=== PATIENT | male | born 1950 | race Caucasian/White ===

== ENCOUNTER 2016-12-27 13:52 | Emergency (ER) | payer OTHER ==
[~2016-12-27] VITALS: Ht 180.3 cm; Wt 82.0 kg
[2016-12-27 13:55] VITALS: BP 98/65; PULSE 104; RESP 20; TEMP 97.9; O2SAT 96
--- NOTE | 2016-12-27 13:59 | PD ---
Physical Exam Time Seen by Provider: 13:58 Narrative 66 yowm presents with R knee pain "couple weeks." VSS Seen at triage desk awaiting bed placement. Data Data Last Documented VS Vital Signs Date Time Temp Pulse Resp B/P Pulse Ox O2 Delivery O2 Flow Rate FiO2 12/27/16 13:55 97.9 104 20 98/65 96 Room Air [facility] Medical Record Reviewed: Yes Supervised Visit with JB: Yes Scripts No Active Prescriptions or Reported Meds Duane Blum Dec 27, 2016 13:59
[2016-12-27] MEDS ORDERED: TAMS0.4C4 PO (14:19)
[2016-12-27] MEDS ORDERED: BUPR75TA PO (14:19)
[2016-12-27] MEDS ORDERED: OMEP20TA PO (14:19)
--- NOTE | 2016-12-27 14:40 | PD ---
HPI Chief Complaint: Injury Time Seen by Provider: 14:40 Travel History International Travel<30 days: No Contact w/Intl Traveler<30days: No Traveled to known affect area: No History of Present Illness HPI 66-year-old male presents to the emergency room with complaint of right knee pain for the last few months. Denies injury. He has seen his primary care provider and had an x-ray done and was told that he has arthritis in his knee. He just can't take the pain anymore. His primary care provider told him to take Tylenol and it just is not working. Pain is worse with walking. He is not using anything for support. He denies paresthesias, loss of sensation, decreased range of motion, decreased strength to the affected extremity. Denies fever, chills, nausea, vomiting. Has not tried any other treatments to alleviate symptoms. Allergies to Unasyn. No other modifying factors or associated signs and symptoms. PFSH Past Medical History Anemia: Yes Arthritis: Yes (LOW BACK AND HANDS) Depression: Yes Cardiovascular Problems: Yes High Cholesterol: Yes Diabetes: No Diminished Hearing: Yes (IONE) GERD: Yes Headaches: Yes Hepatitis: Yes (HEPATITIS B) Hypertension: Yes Musculoskeletal: Yes (LEFT HAND , FINGERS, WRIST SWOLLEN FELL 2 DAYS AGO) Neurologic: Yes Psychiatric: Yes Integumentary: Yes (RASH ) Immunizations Current: Yes Migraines: Yes Pneumonia: Yes PNEUMOCCOCAL Vaccine (Year): 4 Past Surgical History Abdominal Surgery: Yes Pacemaker: No Tonsillectomy: Yes Other Surgery: Yes (REPAIR OF UMBILICAL AND VENTRAL HERNIA) Social History Alcohol Use: Yes (DAILY ETOH ABUSE) Tobacco Use: No Substance Use: Yes (ETOH, CRACK, BENZO, THC) Allergies-Medications (Allergen,Severity, Reaction): Coded Allergies: Unasyn (Verified Allergy, Unknown, SKIN RASH, 12/27/16) PT NOT SURE IF HE IS ALLERGIC TO THIS MED Reported Meds & Prescriptions Reported Meds & Active Scripts Active Folding Walker/5" Wheels (Device) 1 Mis Mis 1 Ea .ROUTE DIRECTED Naproxen 500 Mg Tab 500 Mg PO BID 7 Days Deltasone (Prednisone) 20 Mg Tab 40 Mg PO DAILY 5 Days Reported Tamsulosin (Tamsulosin HCl) 0.4 Mg Cap 0.4 Mg PO HS Omeprazole 20 Mg Tab 20 Mg PO BID Bupropion HCl 75 Mg Tab 75 Mg PO BID Review of Systems Except as stated in HPI: all other systems reviewed are Neg Physical Exam Narrative GENERAL: Well-nourished, well-developed male patient, in no acute distress; afebrile, nontoxic-appearing SKIN: Warm and dry. HEAD: Atraumatic. Normocephalic. EYES: Pupils equal and round. No scleral icterus. No injection or drainage. ENT: Mucosa pink and moist. Airway patent. NECK: Trachea midline. CARDIOVASCULAR: Regular rate. RESPIRATORY: No accessory muscle use. GASTROINTESTINAL: Rounded.. MUSCULOSKELETAL: Right knee nonedematous, nonerythematous, and without ecchymosis; with full range of motion and flexion to 90; joint stable with negative drawer test; point tenderness to the anterior aspect; no obvious deformities. Right lower extremity is supple and non-tense with 2+ pedal pulses and sensory intact without erythema or edema. No obvious deformities. No edema. NEUROLOGICAL: Awake and alert. Oriented 3. No obvious cranial nerve deficits. Motor grossly within normal limits. Normal speech. PSYCHIATRIC: Appropriate mood and affect; insight and judgment normal. Data Data Last Documented VS Vital Signs Date Time Temp Pulse Resp B/P Pulse Ox O2 Delivery O2 Flow Rate FiO2 12/27/16 13:55 97.9 104 20 98/65 96 Room Air Orders Crutches (12/27/16 14:40) MDM Medical Decision Making Medical Screen Exam Complete: Yes Emergency Medical Condition: Yes Medical Record Reviewed: Yes Differential Diagnosis Arthritis, bursitis, knee pain Narrative Course 66-year-old male with right knee pain that has been told he has arthritis by his primary care provider. Denies injury. He has had an x-ray in the last couple months verifying the arthritis, per the patient. He does not have anything for support. The knee is without erythema, edema and with full range of motion to 90. The joint stable with negative drawer test. I do not suspect fracture or dislocation and felt that imaging is necessary at this time. I provided patient with crutches for support. Prescribed a walker for home. Prescribed Deltasone and naproxen for home. Instructed patient to follow up with orthopedic. Patient verbalizes understanding and agreement with treatment plan. Patient is medically cleared and stable for discharge. Discussed reasons to return to the emergency department. Instructed patient to follow up with primary care provider. Patient agrees with treatment plan. The patients vital signs are stable and the patient is stable for outpatient follow- up and treatment. Patient discharged home, stable and in no acute distress. Diagnosis Primary Impression: Right knee pain Qualified Code: M25.561 - Right knee pain, unspecified chronicity Referrals: Orthopedist Primary Care Physician Patient Instructions: Arthritis (ED), Crutch Instructions (ED), General Instructions, Knee Pain (ED) Additional Instructions: Tylenol or ibuprofen as needed and as directed to reduce pain and inflammation Rest, ice, compress, and elevate extremity to decrease pain and inflammation Knee Brace for support Crutches for support Avoid aggravating activity; increase activity as tolerated Follow-up with primary care provider Return to the emergency department immediately with worsening symptoms Med/Other Pt SpecificInfo: Prescription(s) given Scripts Folding Walker/5" Wheels 1 Mis Mis #1 Ea .route As Directed Prov:Kenisha Lopez 12/27/16 Naproxen 500 Mg [id number] Mg PO BID 7 Days Ref 0 Prov:Kenisha Lopez 12/27/16 Prednisone (Deltasone)20 Mg Tab40 Mg PO DAILY 5 Days Ref 0 Prov:Kenisha Lopez 12/27/16 Disposition: 01 DISCHARGE HOME Condition: Stable Kenisha Lopez Dec 27, 2016 14:40
[2016-12-27] MEDS ORDERED: PRED-503 PO (14:42)
[2016-12-27] MEDS ORDERED: NAPR500T PO (14:42)
[2016-12-27] MEDS ORDERED: MISC-274 (14:43)
== END 2016-12-27 15:02 | disposition home or self-care (01) ==
LOC: NEPK 13:52
DX: M25.561 Pain in right knee (principal); I10 Essential (primary) hypertension; E78.00 Pure hypercholesterolemia, unspecified; H91.90 Unspecified hearing loss, unspecified ear; Z86.2 Personal history of diseases of the blood and blood-forming organs and certain disorders involving the immune mechanism; Z87.39 Personal history of other diseases of the musculoskeletal system and connective tissue; Z86.59 Personal history of other mental and behavioral disorders; Z86.79 Personal history of other diseases of the circulatory system; Z87.19 Personal history of other diseases of the digestive system; Z86.69 Personal history of other diseases of the nervous system and sense organs; Z87.01 Personal history of pneumonia (recurrent)
CPT/HCPCS: 99283; E0113

== ENCOUNTER → 2017-02-09 | Day surgery (SDC) | payer OTHER ==
[~2017-02-09] MED LIST: BUPR75TA PO; LACTATED RINGER'S 1000 ML INJ 1,000 ML ONE; MIDAZOLAM HCL 2 MG/2 ML VIAL ONE; MISC-274; NAPR500T PO; OMEP20TA PO; ONDANSETRON HCL 4 MG/2 ML VIAL IV PUSH ONE; PRED-503 PO; PROPOFOL 200 MG/20 ML AMP IV ONE; TAMS0.4C4 PO; TRIAMCINOLONE ACETONIDE 40 MG/ML VIAL ONE; ceFAZolin INJ 1,000 MG VIAL ONE
--- NOTE | 2017-02-09 09:57 | TN ---
cc: ANUSHA IVY M.D. DATE OF SURGERY February 09, 2017 PREOPERATIVE DIAGNOSIS Right knee internal derangement. 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 PROCEDURE Right knee arthroscopic surgery - subtotal medial meniscectomy. SURGEON Uriel Ivy MD ASSESSMENT Natasha Pascual PA-C SPECIMEN None. ESTIMATED BLOOD LOSS None. COMPLICATIONS None. ANESTHESIA General. DRAIN None. TOURNIQUET TIME 12 minutes at 250 mmHg. CONDITION Stable. PLAN OF ACTIVITY As per orders. PROCEDURE My retail store assistant, Natasha Pascual PA-C, was present for the entire surgical case. She was medically necessary for the entire case because of the complexity of the case and to facilitate the performance of the procedure. The RADIAL DRILL PRESS OPERATOR at the back table was not of the skill set for this case, to manipulate the instruments e.g. the arthroscopy, arthroscopic rongeurs and alice. The patient was brought into the operating room, had satisfactory general anesthesia by the Department of Anesthesia. The right lower extremity was prepped and draped in the usual sterile manner. The extremity was exsanguinated by Kam wrap, tourniquet inflated to 250 mmHg. Routine anterior lateral and anterior medial port holes were made. Introduction of the arthroscopic instrument was performed. The knee was inflated with sterile Ringer's lactate solution. Inspection of the patellofemoral compartment revealed mild chondromalacia of the patellofemoral compartment, a moderate degree of synovitis. The lateral compartment showed normal articular surfaces of the lateral compartment. Normal lateral meniscus. The anterior cruciate ligament was found to be intact; no evidence of any recent or remote injury. The medial compartment showed the patient to have a complex tear involving the posterior medial meniscus. The patient was also found to have a mild to moderate degree of chondromalacia involving the medial femoral condyle at the area of the posterior medial meniscus tear and mild chondromalacia involving the medial tibial plateau. A subtotal meniscectomy was performed using multiple different types of meniscal rongeurs and alice. Chondroplasty and shaving of the articular surface was also performed involving the medial compartment. The knee was irrigated with copiously amounts of Ringer's lactate solution. The knee was injected with 1 cc of Kenalog 40. The arthroscopic instruments were removed. The incisions were closed using 3-0 nylon suture. The tourniquet was deflated. Sterile dressings were applied. The patient tolerated the procedure well and arrived in the recovery room in stable and satisfactory condition. MD JESSICA Mosley/MARTHA /9:21 AM /9:39 AM
== END | disposition home or self-care (01) ==
LOC: ESDC 07:17
PROVIDERS: ATTEND Orthopaedic Surgery Orthopaedic Surgery of the Spine
DX: S83.231A Complex tear of medial meniscus, current injury, right knee, initial encounter (principal); M94.261 Chondromalacia, right knee
CPT/HCPCS: 01400; 29881; J0690; J2250; J2405; J3010; J3301; J7120

== ENCOUNTER → 2017-06-15 | Day surgery (SDC) | payer OTHER ==
[~2017-06-15] MED LIST changes: +ACETAMINOPHEN/HYDROcodone 325 MG/5 MG TAB ONE; +BACITRACIN IM FOR SOLN 50,000 UNIT VIAL ONE; +BUPIVACAINE/EPINEPHRINE 0.25% 50 ML VIAL ONE; +GENTAMICIN SULFATE 80 MG/2 ML VIAL ONE; +KETOROLAC TROMETHAMINE 30 MG/ML (IVP) VIAL IV PUSH ONE; +MORPHINE SULFATE 4 MG/ML INJ ONE; +SODIUM CHLORIDE 0.9% 20 ML VIAL ONE; -TRIAMCINOLONE ACETONIDE 40 MG/ML VIAL ONE; +VANCOMYCIN HCL 1000 MG VIAL ONE; +ceFAZolin 2 GM PREMIX 50 ML ONE
--- NOTE | 2017-06-15 10:34 | TN ---
cc: ANUSHA IVY M.D. DATE OF SURGERY 06/15/2017 PREOPERATIVE DIAGNOSIS Right knee medial compartment severe osteoarthritis, osteonecrosis medial femoral condyle, genu varus deformity. POSTOPERATIVE DIAGNOSIS Right knee medial compartment severe osteoarthritis, osteonecrosis medial femoral condyle, genu varus deformity. PROCEDURE Right knee medial unicondylar arthroplasty, partial patellectomy. SURGEON Uriel Ivy MD LANDSCAPE HORTICULTURE INSTRUCTOR Yuval Ivy MD, ALONZO Moralez None ESTIMATED BLOOD LOSS Minimum COMPLICATIONS None ANESTHESIA General DRAINS None TOURNIQUET TIME 58 minutes at 250 mmHg CONDITION Stable PLAN OF ACTIVITY Per orders. PROCEDURE The patient brought into the operating room and had satisfactory anesthesia by the Department of Anesthesia. The right lower extremity was prepped and draped in the usual sterile manner. The extremity was exsanguinated by Kam wrap and tourniquet was inflated to 250 mmHg. Routine anterior medial exposure to the knee was made. A paramedian capsulotomy was performed. The patient was found to have severe osteoarthritis of the medial femoral condyle with osteonecrosis of the medial femoral condyle. The remaining portion of the medial meniscus was removed. The anterior cruciate ligament was preserved. Using [employer] unicondylar arthroplasty system, a guide was used to remove the posterior condyle of the medial femoral condyle. This was approximately 7 mm in thickness. A bur was then used to contour the proximal tibia to accept a number 3, 6.5 mm tibial component. The patient was found to have what appear to me to be a possible old healed medial tibial plateau fracture posteromedially, but was able to contour an appropriate implant with excellent bony fixation with methylmethacrylate. The distal femur was prepared to accept a #2 right medial femoral component. Trial reduction was made. The patient was found to have excellent balance with flexion/extension. All trial implants were removed and preparation for cementing was made. First, one packages of methylmethacrylate used from [employer] bone cement, high viscosity bone cement. Initially the tibial component was cemented which was a #3, 6.5 mm tibial component and then a #2 right medial femoral component was cemented. All excess bone cement was removed and bone cement was allowed to harden for 14 minutes. The wound was irrigated with copious amounts of sterile saline. The wound itself was dry. The wound was closed in routine manner. It was closed over an eighth inch Hemovac drain. The capsule was repaired using #2 Tycron sutures. Subcutaneous tissues closed in layers with 2-0 Vicryl and skin was approximated with running subcuticular 2-0 nylon. The tourniquet was deflated. All bleeders were coagulated. Sterile dressings were applied. The patient tolerated the procedure and arrived in the Recovery Room in stable and satisfactory condition. MD JESSICA Mosley/LATOSHA /10:13 AM /10:21 AM
== END | disposition home or self-care (01) ==
LOC: ESDC 07:18
PROVIDERS: ATTEND Orthopaedic Surgery Orthopaedic Surgery of the Spine
DX: M17.11 Unilateral primary osteoarthritis, right knee (principal); M87.9 Osteonecrosis, unspecified; M21.161 Varus deformity, not elsewhere classified, right knee
CPT/HCPCS: 01400; 27446; C1776; J0690; J1580; J1885; J2250; J2270; J2405; J3010; J3370; J7120

== ENCOUNTER 2018-08-12 11:17 | Inpatient (IN) ==
--- NOTE | 2018-08-12 11:52 | ED ---
HPI General Chief complaint: Psychiatric Symptoms Stated complaint: Medical Time Seen by Provider: 08/12/18 11:39 Source: patient and RN notes reviewed Mode of arrival: EMS Limitations: altered mental status History of Present Illness HPI narrative: 68-year-old man arrived by ambulance with report of altered mental status. They are not available at my evaluation of patient. Patient cannot tell me how he got here or why he came here. He states he does live with a roommate in an apartment. He states that he thinks it is near [address] [place] 1929. He intermittently will laugh and say random words when you try to ask him a direct question and history is very difficult to obtain but he denies specific pain or other complaints. Related Data Home Medications Medication Instructions Recorded Confirmed bupropion HCl 120 mg PO BID 08/12/18 08/12/18 Allergies Allergy/AdvReac Type Severity Reaction Status Date / Time ampicillin Allergy Unknown SKIN RASH Verified 08/12/18 13:02 sulbactam Allergy Unknown SKIN RASH Verified 08/12/18 13:02 Review of Systems ROS Unobtainable ROS Unobtainable: unobtainable due to mental status PMFSH History History Provided By: Medical Record (Medical records listed osteoarthritis, anxiety) Social History Social History Smoking Status: Former smoker How Often Do You Have a Drink Containing Alcohol: Unable to Obtain Immunization History Tetanus Immunization: Unsure Exam Narrative Exam Narrative: GENERAL: 68-year-old male in no apparent distress SKIN: Focused skin assessment warm/dry. HEAD: Atraumatic. Normocephalic. EYES: Pupils equal and round. No scleral icterus. No injection or drainage. ENT: No nasal bleeding or discharge. Mucous membranes pink and moist. NECK: Trachea midline. No JVD. CARDIOVASCULAR: Regular rate and rhythm. RESPIRATORY: No accessory muscle use. Clear to auscultation. Breath sounds equal bilaterally. MUSCULOSKELETAL: No obvious deformities. No clubbing. No cyanosis. No edema. NEUROLOGICAL: Awake and alert to name only. 5 out of 5 in all 4 extremities, follows commands, motor grossly within normal limits. Clear tangential speech. Course Reevaluation(s) Reevaluation #1: ED workup with renal failure with unknown chronicity will admit to medicine for further workup of this and altered mental status Consultations Consultation #1: dr chibuyana midlevel agrees to admit Initial Documented Vital Signs Temperature 99.1 F 08/12/18 11:31 Pulse Rate 109 H 08/12/18 11:31 Respiratory Rate 26 H 08/12/18 11:31 Blood Pressure 173/77 H 08/12/18 11:31 Pulse Oximetry 99 08/12/18 11:31 Last Documented Vital Signs Temperature 99.1 F 08/12/18 11:31 Pulse Rate 87 08/12/18 13:06 Respiratory Rate 22 08/12/18 13:06 Blood Pressure 160/98 H 08/12/18 13:06 Pulse Oximetry 97 08/12/18 13:06 Medical Decision Making MDM Narrative Medical decision making narrative: We will check blood work, urinalysis, CT brain and reevaluate Medical Screen Exam Complete: Yes Emergency Medical Condition: Yes Differential Diagnosis Differential Diagnosis: UTI, intracranial, schizophrenia, electrolyte abnormality Lab Data Lab results reviewed: Yes I reviewed the patient's lab results. Result diagrams: 08/12/18 11:57 08/12/18 11:57 Lab Results 08/12/18 08/12/18 08/12/18 Range/Units 11:57 11:57 11:57 WBC 10.7 (4.0-11.0) th/mm3 RBC 4.48 L (4.50-5.90) mil/mm3 Hgb 14.8 (13.0-17.0) gm/dL Hct 42.5 (39.0-51.0) % MCV 95.0 (80.0-100.0) fL MCH 33.1 (27.0-34.0) pg MCHC 34.9 (32.0-36.0) % RDW 13.6 (11.6-17.2) % Plt Count 260 (150-450) th/mm3 MPV 8.6 (7.0-11.0) fL Neut % (Auto) 84.5 H (16.0-70.0) % Lymph % (Auto) 11.3 (9.0-44.0) % Hood % (Auto) 3.9 (0.0-8.0) % Eos % (Auto) 0.0 (0.0-4.0) % Baso % (Auto) 0.3 (0.0-2.0) % Neut # (Auto) 9.1 H (1.8-7.7) th/mm3 Lymph # (Auto) 1.2 (1.0-4.8) th/mm3 Hood # (Auto) 0.4 (0.0-0.9) th/mm3 Eos # (Auto) 0.0 (0.0-0.4) th/mm3 Baso # (Auto) 0.0 (0.0-0.2) th/mm3 WBC Differential . Differential Comment Auto diff final Sodium 138 (136-145) meq/L Potassium 3.8 (3.5-5.1) meq/L Chloride 104 (98-107) meq/L Carbon Dioxide 23.4 (21.0-32.0) meq/L Anion Gap 11 (5-15) meq/L BUN 28 H (7-18) mg/dL Creatinine 2.27 H (0.60-1.30) mg/dL Estimated GFR 29 L (>89) mL/min Random Glucose 95 (74-106) mg/dL Calcium 9.1 (8.5-10.1) mg/dL Magnesium 2.1 (1.5-2.5) mg/dL Total Bilirubin 0.7 (0.2-1.0) mg/dL AST 21 (15-37) U/L ALT 22 (12-78) U/L Alkaline Phosphatase 68 (45-117) U/L Ammonia (11-32) mcmol/L Total Creatine Kinase 258 (39-308) U/L Total Protein 8.1 (6.4-8.2) g/dL Albumin 4.7 (3.4-5.0) g/dL Urine Color (Yellw/Straw) Urine Clarity (Clear) Urine pH (5.0-8.5) Ur Specific [place] (1.002-1.035) Urine Protein (Neg-Trace) mg/dL Urine Glucose (UA) (Negative) mg/dL Urine Ketones (Negative) mg/dL Urine Occult Blood (Negative) Urine Nitrate (Negative) Urine Bilirubin (Negative) Urine Urobilinogen (Less than 2) mg/dL Ur Leukocyte Esterase (Negative) Urine RBC (0-3) /hpf Urine WBC (0-5) /hpf Ur Squamous Epith Cells (0-5) /hpf Urine Bacteria (None) /hpf Hyaline Casts (0-3) /lpf Micro UA Comment Ur Microscopic Review Urine Culture Comments Urine Opiates Screen (Neg) Ur Barbiturates Screen (Neg) Ur Amphetamines Screen (Neg) U Benzodiazepines Scrn (Neg) Urine Cocaine Screen (Neg) U Cannabinoids Screen (Neg) Serum Alcohol Less than 3 (0-5) mg/dL 08/12/18 08/12/18 08/12/18 Range/Units 12:04 12:34 12:34 WBC (4.0-11.0) th/mm3 RBC (4.50-5.90) mil/mm3 Hgb (13.0-17.0) gm/dL Hct (39.0-51.0) % MCV (80.0-100.0) fL MCH (27.0-34.0) pg MCHC (32.0-36.0) % RDW (11.6-17.2) % Plt Count (150-450) th/mm3 MPV (7.0-11.0) fL Neut % (Auto) (16.0-70.0) % Lymph % (Auto) (9.0-44.0) % Hood % (Auto) (0.0-8.0) % Eos % (Auto) (0.0-4.0) % Baso % (Auto) (0.0-2.0) % Neut # (Auto) (1.8-7.7) th/mm3 Lymph # (Auto) (1.0-4.8) th/mm3 Hood # (Auto) (0.0-0.9) th/mm3 Eos # (Auto) (0.0-0.4) th/mm3 Baso # (Auto) (0.0-0.2) th/mm3 WBC Differential Differential Comment Sodium (136-145) meq/L Potassium (3.5-5.1) meq/L Chloride (98-107) meq/L Carbon Dioxide (21.0-32.0) meq/L Anion Gap (5-15) meq/L BUN (7-18) mg/dL Creatinine (0.60-1.30) mg/dL Estimated GFR (>89) mL/min Random Glucose (74-106) mg/dL Calcium (8.5-10.1) mg/dL Magnesium (1.5-2.5) mg/dL Total Bilirubin (0.2-1.0) mg/dL AST (15-37) U/L ALT (12-78) U/L Alkaline Phosphatase (45-117) U/L Ammonia 19 (11-32) mcmol/L Total Creatine Kinase (39-308) U/L Total Protein (6.4-8.2) g/dL Albumin (3.4-5.0) g/dL Urine Color [place] (Yellw/Straw) Urine Clarity Clear (Clear) Urine pH 5.0 (5.0-8.5) Ur Specific [place] 1.036 H (1.002-1.035) Urine Protein 30 H (Neg-Trace) mg/dL Urine Glucose (UA) Negative (Negative) mg/dL Urine Ketones 20 (Negative) mg/dL Urine Occult Blood Negative (Negative) Urine Nitrate Negative (Negative) Urine Bilirubin Negative (Negative) Urine Urobilinogen 2.0 H (Less than 2) mg/dL Ur Leukocyte Esterase Negative (Negative) Urine RBC 1 (0-3) /hpf Urine WBC 1 (0-5) /hpf Ur Squamous Epith Cells <1 (0-5) /hpf Urine Bacteria Rare H (None) /hpf Hyaline Casts 36 (0-3) /lpf Micro UA Comment Culture not ind Ur Microscopic Review Not Reportable Urine Culture Comments Culture not ind Urine Opiates Screen Neg (Neg) Ur Barbiturates Screen Neg (Neg) Ur Amphetamines Screen Neg (Neg) U Benzodiazepines Scrn Neg (Neg) Urine Cocaine Screen Neg (Neg) U Cannabinoids Screen Neg (Neg) Serum Alcohol (0-5) mg/dL Imaging Data Attestation: I personally reviewed and interpreted this imaging study as follows : Radiologist's impression: Head CT 08/12/18 11:39 CONCLUSION: 1. No acute intracranial abnormality. 2. Atrophy. . Discharge Plan Discharge Disposition Patient Disposition: 30 Still Patient Discharge Details Diagnosis: Altered mental status, Acute renal failure Physicians Team ED Provider: Margareth Weldon Primary Care Provider: UNKNOWN, Attending Provider: Isabela Holt Status ED Status: Admitted Observation Patient
[2018-08-12 12:14] LABS: Baso % (Auto) 0.3 % (0.0-2.0); Hematocrit 42.5 % (39.0-51.0); Hemoglobin 14.8 gm/dL (13.0-17.0); Lymph # (Auto) 1.2 th/mm3 (1.0-4.8); Lymph % (Auto) 11.3 % (9.0-44.0); Mean Corpuscular HGB Conc 34.9 % (32.0-36.0); Mean Corpuscular Hemoglobin 33.1 pg (27.0-34.0); Mean Platelet Volume 8.6 fL (7.0-11.0); Mono # (Auto) 0.4 th/mm3 (0.0-0.9); Mono % (Auto) 3.9 % (0.0-8.0); Neut # (Auto) 9.1 th/mm3 (1.8-7.7); Neut % (Auto) 84.5 % (16.0-70.0); Platelet Count 260 th/mm3 (150-450); Red Blood Count 4.48 mil/mm3 (4.50-5.90); Red Cell Distribution Width 13.6 % (11.6-17.2); White Blood Count 10.7 th/mm3 (4.0-11.0)
--- NOTE | 2018-08-12 12:14 | CT ---
EXAM DATE: 08/12/2018 12:08 PM EST AGE/SEX: 68 years / Male INDICATIONS: Altered mental status, hallucinations. CLINICAL DATA: This is the patient's initial encounter. Patient reports that signs and symptoms have been present for 1 day and indicates a pain score of Nonresponsive. MEDICAL/SURGICAL HISTORY: Non-responsive. Non-responsive. RADIATION DOSE: 56.35 CTDI (mGy) COMPARISON: [facility] – [place] BRAIN W/O CONTRAST, 06/28/2011. . TECHNIQUE: CT of the head without contrast. Using automated exposure control and adjustment of the mA and/or kV according to patient size, radiation dose was kept as low as reasonably achievable to ob tain optimal diagnostic quality images. DICOM format image data is available electronically for revi ew and comparison. FINDINGS: Cerebrum: The ventricles and cortical sulci are mildly widened. No evidence of midline shift, mass lesion, hemorrhage or acute infarction. No extraaxial fluid collections are seen. Posterior Fossa: The cerebellum and brainstem are intact. The 4th ventricle is midline. The cerebe llopontine angle is unremarkable. Extracranial: The visualized portion of the orbits is intact. Skull: The calvaria is intact. No evidence of skull fracture. CONCLUSION: 1. No acute intracranial abnormality. 2. Atrophy. . Electronically signed by: Sathish Murillo MD 08/12/2018 12:12 PM EST
[2018-08-12 12:35] LABS: Alanine Aminotransferase 22 U/L (12-78); Albumin 4.7 g/dL (3.4-5.0); Anion Gap 11 meq/L (5-15); Aspartate Aminotransferase 21 U/L (15-37); Blood Urea Nitrogen 28 mg/dL (7-18); Calcium 9.1 mg/dL (8.5-10.1); Carbon Dioxide 23.4 meq/L (21.0-32.0); Chloride 104 meq/L (98-107); Glomerular Filtration Rate 29 mL/min (>89); Glucose,Random 95 mg/dL (74-106); Magnesium 2.1 mg/dL (1.5-2.5); Potassium 3.8 meq/L (3.5-5.1); Sodium 138 meq/L (136-145)
[2018-08-12 12:37] LABS: Alkaline Phosphatase 68 U/L (45-117); Total Protein 8.1 g/dL (6.4-8.2)
[2018-08-12] MEDS ORDERED: Sodium Chlor 0.9% Inj 500 ML IV.SIG SCH (13:00)
[2018-08-12 13:16] LABS: Bacteria,Urine Rare /hpf; Bilirubin,Urine Negative (Negative); Clarity,Urine Clear (Clear); Color,Urine Amber (Yellw/Straw); Glucose,Urine (UA) Negative (Negative); Hyaline Casts,Urine 36 /lpf (0-3); Leukocyte Esterase,Urine Negative (Negative); Nitrite,Urine Negative (Negative); Specific Gravity,Urine 1.036 (1.002-1.035); Squamous Epithelial Cell,Urine <1 /hpf (0-5)
[2018-08-12 13:18] LABS: Amphetamine Screen,Urine Neg (Neg); Barbiturate Screen,Urine Neg (Neg); Cannabinoid Screen,Urine Neg (Neg); Cocaine Screen,Urine Neg (Neg)
[2018-08-12 13:19] LABS: Opiate Screen,Urine Neg (Neg)
[2018-08-12] MEDS ORDERED: Bisacodyl 10 MG Supp RECTAL PRN (14:33)
[2018-08-12] MEDS ORDERED: Haloperidol Inj 5 MG/ML Ampul IV.PUSH PRN (14:33)
[2018-08-12] MEDS ORDERED: Acetaminophen 325 MG Tablet PO PRN (14:33)
[2018-08-12] MEDS: Folic Acid 1 MG Tablet PO SCH (14:48)
[2018-08-12] MEDS: Sod Chloride 0.9% Inj 1,000 ML IV.CONT SCH ×2 (14:49→20:44)
[2018-08-12] MEDS: Multivitamin/Minerals Therapeutic Tablet PO SCH (15:21)
[2018-08-12] MEDS: amLODIPine 5 MG Tablet PO SCH (15:21)
--- NOTE | 2018-08-12 17:58 | P.HP ---
History of Present Illness Service: Hospitalist Primary Care Physician: UNKNOWN Chief Complaint: AMS History of Present Illness: Patient is a 68-year-old male who was brought to the ED via EMS for altered mental status. History is limited and there is no family or friends at bedside. Patient will occasionally answer direct questions but mostly responds with nonsense. Pleasant but very tangential. Eventually does tell me that he lives with a roommate. Also endorses drinking at least one 12 pack a day. - Diagnosis (1) ETOH abuse (2) Altered mental status (3) Acute renal failure Review of Systems unobtainable due to mental condition PMFSH - History History Provided By: Medical Record - Medical History Medical History: Medical History (Last Reviewed 08/12/18 @ 17:46 by NATALIE Cordon) Arthropathy of right knee History of GI bleed History of duodenal ulcer Hypertension Kidney disease - Family History Family History: Family History (Last Reviewed 08/12/18 @ 17:46 by NATALIE Cordon) Other Family history unknown - Tobacco History Smoking Status: Smoker, status unknown - Alcohol History How Often Do You Have a Drink Containing Alcohol: 4 or more times a week - Immunization History Tetanus Immunization: Unsure Medications and Allergies Active Medications: Active Medications Acetaminophen (Tylenol) 650 mg PO Q4H PRN PRN Reason: Temp > 100.4 Al Hydroxide/Mg Hydroxide (Milk Of Willie Singh) 30 ml PO Q12H PRN PRN Reason: Mild Constipation Amlodipine Besylate (Norvasc) 5 mg PO DAILY [facility] Last Admin: 08/12/18 15:21 Dose: 5 mg Bisacodyl (Dulcolax Supp) 10 mg RECTAL DAILY PRN PRN Reason: SEVERE CONSITIPATION Bupropion HCl (Wellbutrin Sr) 150 mg PO BID [facility] Flumazenil (Romazecon Inj) 0.2 mg IV.PUSH Q1M PRN PRN Reason: OVERSEDATION Folic Acid (Folic Acid) 1 mg PO DAILY [facility] Stop: 08/17/18 14:44 Last Admin: 08/12/18 14:48 Dose: 1 mg Haloperidol Lactate (Haldol Inj) 1 mg IV.PUSH Q15M PRN PRN Reason: for severe agitation Sodium Chloride (Ns Inj) 1,000 mls @ 150 mls/hr IV.CONT .Q6H40M [facility] Stop: 08/13/18 04:04 Last Admin: 08/12/18 14:49 Dose: 150 mls/hr Lactulose (Lactulose Liq) 30 ml PO DAILY PRN PRN Reason: SEVERE CONSITIPATION Lorazepam (Ativan) 1 mg PO Q4H PRN PRN Reason: for CIWA 8-10 Lorazepam (Ativan) 2 mg PO Q2H PRN PRN Reason: for CIWA 11-14 Lorazepam (Ativan Inj) 2 mg IV.PUSH Q2H PRN PRN Reason: for CIWA 11-14 Lorazepam (Ativan Inj) 2 mg IV.PUSH Q1H PRN PRN Reason: for CIWA 15-20 Lorazepam (Ativan Inj) 2 mg IV.PUSH Q15M PRN PRN Reason: for CIWA > 20 Lorazepam (Ativan Inj) 1 mg IV.PUSH Q4H PRN PRN Reason: for CIWA 8-10 Multivitamins/Minerals (Theragran-M) 1 tab PO DAILY [facility] Stop: 08/17/18 14:44 Last Admin: 08/12/18 15:21 Dose: 1 tab Ondansetron HCl (Zofran Inj) 4 mg IV.PUSH Q6H PRN PRN Reason: NAUSEA OR VOMITING Senna/Docusate Sodium (Lisa-Colace) 1 tab PO BID [facility] Sennosides (Senokot) 17.2 mg PO Q12H PRN PRN Reason: Moderate Constipation Sodium Chloride (Ns Flush) 2 ml IV.FLUSH PRN PRN PRN Reason: FLUSH AFTER USING IV ACCESS Thiamine HCl (Vitamin B1) 100 mg PO DAILY [facility] Last Admin: 08/12/18 15:21 Dose: 100 mg Allergies Allergy/AdvReac Type Severity Reaction Status Date / Time ampicillin Allergy Unknown SKIN RASH Verified 08/12/18 13:02 sulbactam Allergy Unknown SKIN RASH Verified 08/12/18 13:02 Home Medications Medication Instructions Recorded Confirmed Type bupropion HCl 120 mg PO BID 08/12/18 08/12/18 History tamsulosin 0.4 mg PO DAILY 08/12/18 08/12/18 History Exam Vital signs: Vital Signs 08/12/18 11:31 08/12/18 13:06 08/12/18 16:00 Temperature 99.1 F 97.9 F Pulse Rate 109 H 87 95 H Respiratory Rate 26 H 22 18 Blood Pressure 173/77 H 160/98 H 179/96 H Pulse Oximetry 99 97 97 Intake & Output 08/11/18 08/12/18 08/12/18 18:59 06:59 18:59 Intake Total 500 / 500 Balance 500 / 500 Weight 98 kg Intake: IV 500 / 500 NS Inj 500 ML @ 1000 mls/hr IV. 500 / 500 SIG BOLUS GERARDO Rx#:[id number] Other: Weight On Admission 98 kg Narrative: GENERAL: Well-nourished, well-developed adult male in no obvious distress. SKIN: Warm and dry. Significant sun damage to forehead and scalp. HEAD: Atraumatic. Normocephalic. PERRLA CARDIOVASCULAR: Regular rate and rhythm. RESPIRATORY: No accessory muscle use. Clear to auscultation. Breath sounds equal bilaterally. GASTROINTESTINAL: Abdomen soft, non-tender, non-distended. Positive bowel sounds. MUSCULOSKELETAL: Extremities without clubbing, cyanosis, or edema. No obvious deformities. NEUROLOGICAL: Awake and alert. No obvious cranial nerve deficits. Motor grossly within normal limits. Normal speech. Results - Labs CBC & Chem 7: 08/12/18 11:57 08/12/18 11:57 Labs: Laboratory Results - last 24 hr 08/12/18 08/12/18 08/12/18 11:57 11:57 11:57 WBC 10.7 RBC 4.48 L Hgb 14.8 Hct 42.5 MCV 95.0 MCH 33.1 MCHC 34.9 RDW 13.6 Plt Count 260 MPV 8.6 Neut % (Auto) 84.5 H Lymph % (Auto) 11.3 [place]itchie % (Auto) 3.9 Eos % (Auto) 0.0 Baso % (Auto) 0.3 Neut # (Auto) 9.1 H Lymph # (Auto) 1.2 [place]itchie # (Auto) 0.4 Eos # (Auto) 0.0 Baso # (Auto) 0.0 WBC Differential . Differential Comment Auto diff final Sodium 138 Potassium 3.8 Chloride 104 Carbon Dioxide 23.4 Anion Gap 11 BUN 28 H Creatinine 2.27 H Estimated GFR 29 L POC Glucose Random Glucose 95 Calcium 9.1 Magnesium 2.1 Total Bilirubin 0.7 AST 21 ALT 22 Alkaline Phosphatase 68 Ammonia Total Creatine Kinase 258 Total Protein 8.1 Albumin 4.7 Urine Color Urine Clarity Urine pH Ur Specific [place] Urine Protein Urine Glucose (UA) Urine Ketones Urine Occult Blood Urine Nitrate Urine Bilirubin Urine Urobilinogen Ur Leukocyte Esterase Urine RBC Urine WBC Ur Squamous Epith Cells Urine Bacteria Hyaline Casts Micro UA Comment Ur Microscopic Review Urine Culture Comments Urine Opiates Screen Ur Barbiturates Screen Ur Amphetamines Screen U Benzodiazepines Scrn Urine Cocaine Screen U Cannabinoids Screen Serum Alcohol Less than 3 08/12/18 08/12/18 08/12/18 12:04 12:34 12:34 WBC RBC Hgb Hct MCV MCH MCHC RDW Plt Count MPV Neut % (Auto) Lymph % (Auto) [place] % (Auto) Eos % (Auto) Baso % (Auto) Neut # (Auto) Lymph # (Auto) [place] # (Auto) Eos # (Auto) Baso # (Auto) WBC Differential Differential Comment Sodium Potassium Chloride Carbon Dioxide Anion Gap BUN Creatinine Estimated GFR POC Glucose Random Glucose Calcium Magnesium Total Bilirubin AST ALT Alkaline Phosphatase Ammonia 19 Total Creatine Kinase Total Protein Albumin Urine Color Tawny Urine Clarity Clear Urine pH 5.0 Ur Specific [place] 1.036 H Urine Protein 30 H Urine Glucose (UA) Negative Urine Ketones 20 Urine Occult Blood Negative Urine Nitrate Negative Urine Bilirubin Negative Urine Urobilinogen 2.0 H Ur Leukocyte Esterase Negative Urine RBC 1 Urine WBC 1 Ur Squamous Epith Cells <1 Urine Bacteria Rare H Hyaline Casts 36 Micro UA Comment Culture not ind Ur Microscopic Review Not Reportable Urine Culture Comments Culture not ind Urine Opiates Screen Neg Ur Barbiturates Screen Neg Ur Amphetamines Screen Neg U Benzodiazepines Scrn Neg Urine Cocaine Screen Neg U Cannabinoids Screen Neg Serum Alcohol 08/12/18 17:20 WBC RBC Hgb Hct MCV MCH MCHC RDW Plt Count MPV Neut % (Auto) Lymph % (Auto) [place] % (Auto) Eos % (Auto) Baso % (Auto) Neut # (Auto) Lymph # (Auto) [place] # (Auto) Eos # (Auto) Baso # (Auto) WBC Differential Differential Comment Sodium Potassium Chloride Carbon Dioxide Anion Gap BUN Creatinine Estimated GFR POC Glucose 94 Random Glucose Calcium Magnesium Total Bilirubin AST ALT Alkaline Phosphatase Ammonia Total Creatine Kinase Total Protein Albumin Urine Color Urine Clarity Urine pH Ur Specific [place] Urine Protein Urine Glucose (UA) Urine Ketones Urine Occult Blood Urine Nitrate Urine Bilirubin Urine Urobilinogen Ur Leukocyte Esterase Urine RBC Urine WBC Ur Squamous Epith Cells Urine Bacteria Hyaline Casts Micro UA Comment Ur Microscopic Review Urine Culture Comments Urine Opiates Screen Ur Barbiturates Screen Ur Amphetamines Screen U Benzodiazepines Scrn Urine Cocaine Screen U Cannabinoids Screen Serum Alcohol - Imaging Impressions Head CT 08/12/18 11:39 CONCLUSION: 1. No acute intracranial abnormality. 2. Atrophy. . Caprini VTE Risk Assessment Caprini VTE Risk Assessment: No/Low Risk (score <= 1) Caprini Risk Assessment Model: Point Value = 1 Point Value = 2 Point Value = 3 Point Value = 5 Age 41-60 Minor surgery BMI > 25 kg/m2 Swollen legs Varicose veins or History of unexplained or recurrent spontaneous Oral contraceptives or hormone replacement Sepsis (< 1 month) Serious lung disease, including pneumonia (< 1 month) Abnormal pulmonary function Acute myocardial infarction Congestive heart failure (< 1 month) History of inflammatory bowel disease Medical patient at bed rest Age 61-74 Arthroscopic surgery Major open surgery (> 45 min) Laparoscopic surgery (> 45 min) Malignancy Confined to bed (> 72 hours) Immobilizing plaster cast Central venous access Age >= 75 History of VTE Family history of VTE Factor V Leiden Prothrombin [id number] Lupus anticoagulant Anticardiolipin antibodies Elevated serum homocysteine Heparin-induced thrombocytopenia Other congenital or acquired thrombophilia Stroke (< 1 month) Elective arthroplasty Hip, pelvis, or leg fracture Acute spinal cord injury (< 1 month) Prophylaxis Regimen: Total Risk Factor Score Risk Level Prophylaxis Regimen 0-1 Low Early ambulation 2 Moderate Order ONE of the following: *Sequential Compression Device (SCD) *Heparin 5000 units SQ BID 3-4 Higher Order ONE of the following medications: *Heparin 5000 units SQ TID *Enoxaparin/Lovenox 40 mg SQ daily (WT < 150 kg, CrCl > 30 mL/min) *Enoxaparin/Lovenox 30 mg SQ daily (WT < 150 kg, CrCl > 10-29 mL/min) *Enoxaparin/Lovenox 30 mg SQ BID (WT < 150 kg, CrCl > 30 mL/min) AND/OR *Sequential Compression Device (SCD) 5 or more Highest Order ONE of the following medications: *Heparin 5000 units SQ TID (Preferred with Epidurals) *Enoxaparin/Lovenox 40 mg SQ daily (WT < 150 kg, CrCl > 30 mL/min) *Enoxaparin/Lovenox 30 mg SQ daily (WT < 150 kg, CrCl > 10-29 mL/min) *Enoxaparin/Lovenox 30 mg SQ BID (WT < 150 kg, CrCl > 30 mL/min) AND *Sequential Compression Device (SCD) Assessment and Plan - Assessment (1) ETOH abuse Code(s): F10.10 - Alcohol abuse, uncomplicated Status: Chronic (2) Altered mental status Code(s): R41.82 - Altered mental status, unspecified Status: Acute (3) Acute renal failure Code(s): N17.9 - Acute kidney failure, unspecified Status: Acute - Plan 68-year-old male with past medical history of hypertension and EtOH abuse brought in for altered mental status. AMS -CT shows atrophy but no acute process -Likely related to chronic EtOH abuse as well as dehydration Acute kidney injury on unknown level of CKD -No indication of UTI -IVF fluid for rehydration -Monitor creatinine Alcohol abuse -Monitor for withdrawal -Cessation counseled DVT prophylaxis: Patient is ambulatory Discharge planning: Likely home when back to baseline
[2018-08-12] MEDS: buPROPion 150 MG 12 HR Tablet PO SCH (20:43)
[2018-08-12] MEDS: Senna/Docusate Sodium 8.6/50 MG Tablet PO SCH (20:43)
[2018-08-12] MEDS: LORazepam 1 MG Tablet PO PRN (20:43)
[2018-08-13 07:50] LABS: Calcium 8.8 mg/dL (8.5-10.1); Carbon Dioxide 23.6 meq/L (21.0-32.0); Magnesium 2.2 mg/dL (1.5-2.5); Potassium 3.7 meq/L (3.5-5.1)
[2018-08-13] MEDS: Multivitamin/Minerals Therapeutic Tablet PO SCH (08:00)
[2018-08-13] MEDS: buPROPion 150 MG 12 HR Tablet PO SCH ×2 (08:00→21:23)
[2018-08-13] MEDS: Senna/Docusate Sodium 8.6/50 MG Tablet PO SCH ×2 (08:00→21:23)
[2018-08-13] MEDS: amLODIPine 5 MG Tablet PO SCH (08:00)
[2018-08-13] MEDS: Folic Acid 1 MG Tablet PO SCH (08:00)
--- NOTE | 2018-08-13 09:39 | P.PN ---
Subjective Interval history: Follow-up for AMS. The patient is awake, alert, oriented to person, [facility], in July 2018. He states he does not remember exactly why he is here in the hospital. He states he admits to feeling confused recently. He states he feels much better today, but still has occasional episodes of confusion. Patient admits he has been a lifelong heavy alcohol abuser, relapsed a few months ago, but then stopped drinking 6-8 days ago. He also states that he has been using Xanax, but also has not had any recently. He denies any headache, visual changes, lightheadedness, chest pain, shortness breath, abdominal or urinary complaints. He does not feel ready for discharge. Physical Exam Vital signs: Vital Signs 08/12/18 11:31 08/12/18 13:06 08/12/18 16:00 Temperature 99.1 F 97.9 F Pulse Rate 109 H 87 95 H Respiratory Rate 26 H 22 18 Blood Pressure 173/77 H 160/98 H 179/96 H Pulse Oximetry 99 97 97 08/12/18 19:53 08/12/18 23:27 08/13/18 03:05 Temperature 98.4 F 98.1 F 98.3 F Pulse Rate 86 91 H 97 H Respiratory Rate 17 16 20 Blood Pressure 149/85 H 185/95 H 161/91 H Pulse Oximetry 94 L 94 L 98 08/13/18 07:20 Temperature Pulse Rate 100 H Respiratory Rate 22 Blood Pressure 167/97 H Pulse Oximetry 97 Intake & Output 08/12/18 08/13/18 08/13/18 18:59 06:59 18:59 Intake Total 500 / 500 4360 / 4360 Balance 500 / 500 4360 / 4360 Weight 98 kg Intake: IV 500 / 500 1999 NS Inj 1,000 ML @ 150 mls/hr IV 1999 .CONT .Q6H40M GERARDO Rx#:[id number] NS Inj 500 ML @ 1000 mls/hr IV. 500 / 500 SIG BOLUS GERARDO Rx#:[id number] Oral 360 / 360 Other 1999 Other: Other Intake Source Saline Solution # Voids 4 Weight On Admission 98 kg Narrative: GENERAL: Well-nourished, well-developed middle-aged male patient in [facility]. SKIN: Warm and dry. No rash. HEENT: Normocephalic. Atraumatic. Pupils equal and round. Mucous membranes pink and moist. NECK: Supple. Trachea midline. CARDIOVASCULAR: Regular rate and rhythm. No murmur appreciated. RESPIRATORY: No accessory muscle use. Clear to auscultation. Breath sounds equal bilaterally. GASTROINTESTINAL: Abdomen soft, non-tender, nondistended. Normoactive bowel sounds x4. MUSCULOSKELETAL: No obvious deformities. Extremities without clubbing, cyanosis , or edema. NEUROLOGICAL: Awake and alert, oriented x3. No obvious cranial nerve deficits. Motor grossly within normal limits. Moving all extremities spontaneously. Normal speech. - Urinary Catheter Management Indwelling Urethral Catheter Cath placed during this visit: yes, but has since been removed by the nurse Reason for continuing: Decision to DC catheter Insertion date: 08/14/18 Insertion time: 00:15 Removal date: 08/14/18 Removal time: 15:48 Results - Labs CBC & Chem 7: 08/14/18 04:34 08/14/18 04:34 Laboratory Results - last 24 hr 08/12/18 08/12/18 08/12/18 11:57 11:57 11:57 WBC 10.7 RBC 4.48 L Hgb 14.8 Hct 42.5 MCV 95.0 MCH 33.1 MCHC 34.9 RDW 13.6 Plt Count 260 MPV 8.6 Neut % (Auto) 84.5 H Lymph % (Auto) 11.3 [place] % (Auto) 3.9 Eos % (Auto) 0.0 Baso % (Auto) 0.3 Neut # (Auto) 9.1 H Lymph # (Auto) 1.2 [place] # (Auto) 0.4 Eos # (Auto) 0.0 Baso # (Auto) 0.0 WBC Differential . Differential Comment Auto diff final Sodium 138 Potassium 3.8 Chloride 104 Carbon Dioxide 23.4 Anion Gap 11 BUN 28 H Creatinine 2.27 H Estimated GFR 29 L POC Glucose Random Glucose 95 Calcium 9.1 Magnesium 2.1 Total Bilirubin 0.7 AST 21 ALT 22 Alkaline Phosphatase 68 Ammonia Total Creatine Kinase 258 Total Protein 8.1 Albumin 4.7 Urine Color Urine Clarity Urine pH Ur Specific [place] Urine Protein Urine Glucose (UA) Urine Ketones Urine Occult Blood Urine Nitrate Urine Bilirubin Urine Urobilinogen Ur Leukocyte Esterase Urine RBC Urine WBC Ur Squamous Epith Cells Urine Bacteria Hyaline Casts Micro UA Comment Ur Microscopic Review Urine Culture Comments Urine Opiates Screen Ur Barbiturates Screen Ur Amphetamines Screen U Benzodiazepines Scrn Urine Cocaine Screen U Cannabinoids Screen Serum Alcohol Less than 3 08/12/18 08/12/18 08/12/18 12:04 12:34 12:34 WBC RBC Hgb Hct MCV MCH MCHC RDW Plt Count MPV Neut % (Auto) Lymph % (Auto) [place] % (Auto) Eos % (Auto) Baso % (Auto) Neut # (Auto) Lymph # (Auto) [place] # (Auto) Eos # (Auto) Baso # (Auto) WBC Differential Differential Comment Sodium Potassium Chloride Carbon Dioxide Anion Gap BUN Creatinine Estimated GFR POC Glucose Random Glucose Calcium Magnesium Total Bilirubin AST ALT Alkaline Phosphatase Ammonia 19 Total Creatine Kinase Total Protein Albumin Urine Color Tawny Urine Clarity Clear Urine pH 5.0 Ur Specific [place] 1.036 H Urine Protein 30 H Urine Glucose (UA) Negative Urine Ketones 20 Urine Occult Blood Negative Urine Nitrate Negative Urine Bilirubin Negative Urine Urobilinogen 2.0 H Ur Leukocyte Esterase Negative Urine RBC 1 Urine WBC 1 Ur Squamous Epith Cells <1 Urine Bacteria Rare H Hyaline Casts 36 Micro UA Comment Culture not ind Ur Microscopic Review Not Reportable Urine Culture Comments Culture not ind Urine Opiates Screen Neg Ur Barbiturates Screen Neg Ur Amphetamines Screen Neg U Benzodiazepines Scrn Neg Urine Cocaine Screen Neg U Cannabinoids Screen Neg Serum Alcohol 08/12/18 08/12/18 08/13/18 17:20 21:15 05:59 WBC RBC Hgb Hct MCV MCH MCHC RDW Plt Count MPV Neut % (Auto) Lymph % (Auto) [place] % (Auto) Eos % (Auto) Baso % (Auto) Neut # (Auto) Lymph # (Auto) [place] # (Auto) Eos # (Auto) Baso # (Auto) WBC Differential Differential Comment Sodium 143 Potassium 3.7 Chloride 110 H Carbon Dioxide 23.6 Anion Gap 9 BUN 25 H Creatinine 1.48 H Estimated GFR 47 L POC Glucose 94 109 Random Glucose 83 Calcium 8.8 Magnesium 2.2 Total Bilirubin AST ALT Alkaline Phosphatase Ammonia Total Creatine Kinase Total Protein Albumin Urine Color Urine Clarity Urine pH Ur Specific [place] Urine Protein Urine Glucose (UA) Urine Ketones Urine Occult Blood Urine Nitrate Urine Bilirubin Urine Urobilinogen Ur Leukocyte Esterase Urine RBC Urine WBC Ur Squamous Epith Cells Urine Bacteria Hyaline Casts Micro UA Comment Ur Microscopic Review Urine Culture Comments Urine Opiates Screen Ur Barbiturates Screen Ur Amphetamines Screen U Benzodiazepines Scrn Urine Cocaine Screen U Cannabinoids Screen Serum Alcohol 08/13/18 09:20 WBC RBC Hgb Hct MCV MCH MCHC RDW Plt Count MPV Neut % (Auto) Lymph % (Auto) [place] % (Auto) Eos % (Auto) Baso % (Auto) Neut # (Auto) Lymph # (Auto) [place] # (Auto) Eos # (Auto) Baso # (Auto) WBC Differential Differential Comment Sodium Potassium Chloride Carbon Dioxide Anion Gap BUN Creatinine Estimated GFR POC Glucose 111 H Random Glucose Calcium Magnesium Total Bilirubin AST ALT Alkaline Phosphatase Ammonia Total Creatine Kinase Total Protein Albumin Urine Color Urine Clarity Urine pH Ur Specific [place] Urine Protein Urine Glucose (UA) Urine Ketones Urine Occult Blood Urine Nitrate Urine Bilirubin Urine Urobilinogen Ur Leukocyte Esterase Urine RBC Urine WBC Ur Squamous Epith Cells Urine Bacteria Hyaline Casts Micro UA Comment Ur Microscopic Review Urine Culture Comments Urine Opiates Screen Ur Barbiturates Screen Ur Amphetamines Screen U Benzodiazepines Scrn Urine Cocaine Screen U Cannabinoids Screen Serum Alcohol - Imaging Impressions Head CT 08/12/18 11:39 CONCLUSION: 1. No acute intracranial abnormality. 2. Atrophy. . Assessment and Plan - Assessment (1) ETOH abuse Code(s): F10.10 - Alcohol abuse, uncomplicated Status: Chronic (2) Altered mental status Code(s): R41.82 - Altered mental status, unspecified Status: Acute (3) Acute renal failure Code(s): N17.9 - Acute kidney failure, unspecified Status: Acute - Plan 68-year-old male with past medical history of hypertension and EtOH abuse brought in for altered mental status. AMS/acute toxic/metabolic encephalopathy -head CT shows atrophy but no acute process -UDS/etoh negative -ammonia wnl -Likely related to chronic EtOH abuse in combination with dehydration -patient recently stopped alcohol and xanax, possible withdrawal -check EEG to rule out seizures Alcohol abuse with acute alcohol withdrawal/delirium tremens: patient has stated his last drink was 6-8 days ago. He has been a heavy off/on drinker since age 15. -Monitor for withdrawal -Cessation counseled -CIWA -IV thiamine/folate/MV -1245hrs update: notified by RN, patient actively hallucinating with very high CIWA score, still very agitated despite Haldol and 2mg IV Ativan and requiring 4pt restraints, will admit to inpatient and transfer to ICU Acute kidney injury: suspect secondary to dehydration -UA negative for UTI -Give IVF fluid for rehydration -Avoid nephrotoxins -Monitor BMP, improving, Cr 2.27 --> 1.48 today DVT prophylaxis: heparin sq I spent 35 minutes [id number] with the patient or on the combs discussing the patient's disposition, prognosis, and plan of care with his caregivers. Over half the time spent was devoted to counseling the patient regarding placement in coordinating care with caregivers Discharge Planning: Admitted to inpatient and transfer to ICU for DTs.
[2018-08-13] MEDS ORDERED: Dexmedetomidine Inj 200 MCG/2 ML Vial IV.PUSH ONE (14:47)
[2018-08-13] MEDS: Dexmedetomidine Inj 200 MCG in Sodium Chlor 0.9% Inj 48 ML IV.CONT PRN ×2 (15:08→18:47)
[2018-08-13] MEDS ORDERED: Potassium Chlor 20 mEq Premix 20 MEQ/100 ML PIGGYBACK IV.SIG PRN ×2 (16:15)
[2018-08-13] MEDS ORDERED: Magnesium Oxide 400 MG Tablet PO PRN (16:15)
[2018-08-13] MEDS ORDERED: Potassium Chloride 25 MEQ Effervescent Tablet PO PRN (16:15)
[2018-08-13] MEDS ORDERED: Sodium Phosphate Inj 30 MMOL in Sodium Chlor 0.9% Inj 250 ML IV.SIG PRN (16:15)
[2018-08-13] MEDS ORDERED: Magnesium Sulfate Inj 2 GM in Sodium Chlor 0.9% Inj 96 ML IV.SIG PRN (16:15)
[2018-08-13] MEDS ORDERED: Potassium Phosphate Inj 30 MMOL in Sodium Chlor 0.9% Inj 250 ML IV.SIG PRN (16:15)
[2018-08-13] MEDS ORDERED: Magnesium Sulfate Inj 4 GM in Sodium Chlor 0.9% Inj 92 ML IV.SIG PRN (16:15)
[2018-08-13] MEDS ORDERED: Potassium Phosphate 500 MG Soluble Tablet PO PRN ×2 (16:15)
[2018-08-13] MEDS ORDERED: Potassium Chlor 40 mEq Premix 40 MEQ/100 ML PIGGYBACK IV.SIG PRN ×2 (16:15)
--- NOTE | 2018-08-13 16:15 | P.CONCC ---
History of Present Illness Service: Critical care medicine Consult date: 08/13/18 Reason for Consult: Delirium tremens Primary Care Provider: UNKNOWN Chief Complaint: AMS History of Present Illness: 68-year-old gentleman with long-standing consumption presents with altered mental status to the emergency department. He is disoriented x3. He was initially initiated into the CIWA protocol but has become severely agitated and confused. He is a harm to both himself and to the caregivers and he requires a sedation protocol and formal detox from alcohol +/- xanax. He was transferred to the intensive care unit where I met him on his arrival. He was refractory to intravenous Ativan and required institution of a bolus of Precedex 1 prabha per kilogram followed by continuous infusion. Aggressive hydration with isotonic crystalloid as well as vitamin replacement is been instituted. Review of Systems Unobtainable, patient is severely agitated and confused. No family available. [facility] - History History Provided By: Medical Record - Medical History Medical History: Medical History (Last Reviewed 08/12/18 @ 17:46 by NATALIE Cordon) Arthropathy of right knee History of GI bleed History of duodenal ulcer Hypertension Kidney disease - Family History Family History: Family History (Last Reviewed 08/12/18 @ 17:46 by NATALIE Cordon) Other Family history unknown - Tobacco History Smoking Status: Smoker, status unknown - Alcohol History How Often Do You Have a Drink Containing Alcohol: 4 or more times a week - Immunization History Tetanus Immunization: Unsure Medications and Allergies Active Medications: Active Medications Acetaminophen (Tylenol) 650 mg PO Q4H PRN PRN Reason: Temp > 100.4 Al Hydroxide/Mg Hydroxide (Milk Of Willie Liq) 30 ml PO Q12H PRN PRN Reason: Mild Constipation Amlodipine Besylate (Norvasc) 5 mg PO DAILY [facility] Last Admin: 08/13/18 08:00 Dose: 5 mg Bisacodyl (Dulcolax Supp) 10 mg RECTAL DAILY PRN PRN Reason: SEVERE CONSITIPATION Bupropion HCl (Wellbutrin Sr) 150 mg PO BID [facility] Last Admin: 08/13/18 08:00 Dose: 150 mg Flumazenil (Romazecon Inj) 0.2 mg IV.PUSH Q1M PRN PRN Reason: OVERSEDATION Folic Acid (Folic Acid) 1 mg PO DAILY [facility] Stop: 08/17/18 14:44 Last Admin: 08/13/18 08:00 Dose: 1 mg Haloperidol Lactate (Haldol Inj) 1 mg IV.PUSH Q15M PRN PRN Reason: for severe agitation Last Admin: 08/13/18 11:28 Dose: 1 mg Heparin Sodium (Porcine) (Heparin Inj) 5,000 units SQ BID [facility] Multivitamins 10 ml/ Folic (Acid 1 mg/ Sodium Chloride) 510.2 mls @ 125 mls/hr IV.SIG Q24H [facility] Stop: 08/17/18 19:05 Thiamine HCl 100 mg/ Sodium (Chloride) 101 mls @ 100 mls/hr IV.SIG Q24H [facility] Stop: 08/15/18 16:01 Dexmedetomidine HCl 200 mcg/ (Sodium Chloride) 50 mls @ 4.9 mls/hr IV.CONT TITRATE PRN; Protocol PRN Reason: Per Protocol Last Titration: 08/13/18 15:16 Dose: 0.3 mcg/kg/hr, 7.35 mls/hr Potassium Chloride/Sodium Chloride (Ns + Kcl 20 Meq Inj) 1,000 mls @ 150 mls/ hr IV.CONT .Q6H40M [facility] Lactulose (Lactulose Liq) 30 ml PO DAILY PRN PRN Reason: SEVERE CONSITIPATION Lorazepam (Ativan) 1 mg PO Q4H PRN PRN Reason: for CIWA 8-10 Last Admin: 08/12/18 20:43 Dose: 1 mg Lorazepam (Ativan) 2 mg PO Q2H PRN PRN Reason: for CIWA 11-14 Last Admin: 08/13/18 02:17 Dose: 2 mg Lorazepam (Ativan Inj) 2 mg IV.PUSH Q2H PRN PRN Reason: for CIWA 11-14 Lorazepam (Ativan Inj) 2 mg IV.PUSH Q1H PRN PRN Reason: for CIWA 15-20 Last Admin: 08/13/18 12:07 Dose: 2 mg Lorazepam (Ativan Inj) 2 mg IV.PUSH Q15M PRN PRN Reason: for CIWA > 20 Last Admin: 08/13/18 14:44 Dose: 2 mg Lorazepam (Ativan Inj) 1 mg IV.PUSH Q4H PRN PRN Reason: for CIWA 8-10 Lorazepam (Ativan Inj) 2 mg IV.PUSH Q6H [facility] Stop: 08/15/18 23:59 Ondansetron HCl (Zofran Inj) 4 mg IV.PUSH Q6H PRN PRN Reason: NAUSEA OR VOMITING Senna/Docusate Sodium (Lisa-Colace) 1 tab PO BID [facility] Last Admin: 08/13/18 08:00 Dose: 1 tab Sennosides (Senokot) 17.2 mg PO Q12H PRN PRN Reason: Moderate Constipation Sodium Chloride (Ns Flush) 2 ml IV.FLUSH PRN PRN PRN Reason: FLUSH AFTER USING IV ACCESS Thiamine HCl (Vitamin B1) 100 mg PO BID [facility] Allergies Allergy/AdvReac Type Severity Reaction Status Date / Time ampicillin Allergy Unknown SKIN RASH Verified 08/12/18 13:02 sulbactam Allergy Unknown SKIN RASH Verified 08/12/18 13:02 Home Medications Medication Instructions Recorded Confirmed Type bupropion HCl 120 mg PO BID 08/12/18 08/12/18 History tamsulosin 0.4 mg PO DAILY 08/12/18 08/12/18 History Physical Exam Vital signs: Vital Signs 08/12/18 19:53 08/12/18 23:27 08/13/18 03:05 Temperature 98.4 F 98.1 F 98.3 F Pulse Rate 86 91 H 97 H Respiratory Rate 17 16 20 Blood Pressure 149/85 H 185/95 H 161/91 H Pulse Oximetry 94 L 94 L 98 08/13/18 07:20 08/13/18 12:46 Temperature Pulse Rate 100 H 126 H Respiratory Rate 22 Blood Pressure 167/97 H 142/71 H Pulse Oximetry 97 Intake & Output 08/12/18 08/13/18 08/13/18 18:59 06:59 18:59 Intake Total 500 / 500 4360 / 4360 Balance 500 / 500 4360 / 4360 Weight 98 kg Intake: IV 500 / 500 1999 NS Inj 1,000 ML @ 150 mls/hr IV 1999 .CONT .Q6H40M [facility] Rx#:[id number] NS Inj 500 ML @ 1000 mls/hr IV. 500 / 500 SIG BOLUS [facility] Rx#:[id number] Oral 360 / 360 Other 1999 Other: Other Intake Source Saline Solution # Voids 4 Weight On Admission 98 kg Narrative: GENERAL: Severely agitated elderly gentleman. SKIN: Warm and dry. No rash. HEENT: Normocephalic. Atraumatic. Pupils equal and round. Mucous membranes pink and moist. NECK: Supple. There widely patent, no obstruction. CARDIOVASCULAR: Regular rate and rhythm. Neck veins are flat. No murmur appreciated. RESPIRATORY: No accessory muscle use. Clear to auscultation. Breath sounds equal bilaterally. Tachypneic. GASTROINTESTINAL: Abdomen soft, non-tender, nondistended. No guarding, bowel sounds are active. MUSCULOSKELETAL: No obvious deformities. Extremities without clubbing, cyanosis , or edema. Well perfused. NEUROLOGICAL: Severely agitated, confabulation. Speech is clear but nonsensical. He moves 4 extremities with 5/5 strength. Assessment and Plan - Problem List (1) Encephalopathy acute Code(s): G93.40 - Encephalopathy, unspecified Status: Acute (2) Alcohol withdrawal delirium, acute, hyperactive Code(s): F10.231 - Alcohol dependence with withdrawal delirium Status: Acute (3) Acute renal failure Code(s): N17.9 - Acute kidney failure, unspecified Status: Acute (4) ETOH abuse Code(s): F10.10 - Alcohol abuse, uncomplicated Status: Chronic (5) Xanax use disorder, severe, dependence Code(s): F13.20 - Sedative, hypnotic or anxiolytic dependence, uncomplicated Status: Acute - Assessment and Plan Plan: Plan: 1. Aggressive hydration with isotonic crystalloid. 2. Precedex bolus 1 prabha per kilogram followed by Precedex infusion to maintain grass 0. 3. Seizure precautions. 4. Follow magnesium and phosphorus closely. 5. Heparin subcu for DVT prophylaxis. 6. Pepcid for GI ulcer prophylaxis. 7. Frequent neurochecks. Overall impression: This gentleman is critically ill in the throes of alcoholic withdrawal, severely agitated and refractory to benzodiazepine therapy. He has responded to intravenous Precedex and we will supplement this with additional benzodiazepine for seizure prophylaxis. He is clearly hypermetabolic at this point and will provide additional intravenous hydration. Critical care time 40 minutes including establishment of sedation protocol.
[2018-08-13] MEDS: Thiamine Inj 100 MG in Sodium Chlor 0.9% Inj 100 ML IV.SIG SCH (16:31)
[2018-08-13] MEDS: Multivitamin Inj 10 ML, Folic Acid Inj 1 MG in Sodium Chlor 0.9% Inj 500 ML IV.SIG SCH (16:31)
[2018-08-13] MEDS ORDERED: Sod Chloride 0.9% Inj 1,000 ML IV.SIG ONE (18:15)
--- NOTE | 2018-08-13 20:28 | MG ---
cc: Ramonita Mcgowan MD, Kristine F PA ELECTROENCEPHALOGRAM NUMBER: [id number] REFERRING PHYSICIAN: SILVINA Calloway ROOM: H86. Without hyperventilation, only photic stimulation, 10 mg of Haldol at 11:28 this morning was given to the patient. Awake, agitated, hallucinating. CT did not show anything acute. Admitted for change in mental status. History of knee issues, ulcers, kidney disease. On Norvasc, folic acid, Wellbutrin, Theragran. DESCRIPTION OF RECORD: There is quite a bit of muscle artifact throughout, but overall background of 5-6 Hz. EKG looks like possibly a sinus tachycardia, but a lot of artifact and difficult to see a true rhythm. No appreciable epileptic activity, but a lot of artifact. Photic stimulation consists of mostly eye movement artifact. IMPRESSION: Mild slowing noted. No gross epileptiform features seen. If epilepsy is still a consideration, would discontinue the patient's Wellbutrin as there is a risk of seizures with this medicine. Clinical correlation. MD GIOVANY Gray/saurabh , 08:01 PM , 08:06 PM
[2018-08-13] MEDS: Heparin - SQ 10,000 UNITS/ML Vial SQ SCH (21:23)
[2018-08-14 04:54] LABS: Baso % (Auto) 0.5 % (0.0-2.0); Eos # (Auto) 0.2 th/mm3 (0.0-0.4); Eos % (Auto) 2.7 % (0.0-4.0); Hematocrit 38.3 % (39.0-51.0); Hemoglobin 12.9 gm/dL (13.0-17.0); Lymph # (Auto) 1.9 th/mm3 (1.0-4.8); Lymph % (Auto) 21.1 % (9.0-44.0); Mean Corpuscular HGB Conc 33.6 % (32.0-36.0); Mean Corpuscular Hemoglobin 32.4 pg (27.0-34.0); Mean Corpuscular Volume 96.5 fL (80.0-100.0); Mean Platelet Volume 8.7 fL (7.0-11.0); Mono # (Auto) 0.7 th/mm3 (0.0-0.9); Mono % (Auto) 7.7 % (0.0-8.0); Platelet Count 186 th/mm3 (150-450); Red Blood Count 3.97 mil/mm3 (4.50-5.90); Red Cell Distribution Width 13.7 % (11.6-17.2); White Blood Count 8.9 th/mm3 (4.0-11.0)
[2018-08-14 05:49] LABS: Alanine Aminotransferase 26 U/L (12-78); Albumin 3.5 g/dL (3.4-5.0); Alkaline Phosphatase 57 U/L (45-117); Anion Gap 6 meq/L (5-15); Aspartate Aminotransferase 41 U/L (15-37); Blood Urea Nitrogen 30 mg/dL (7-18); Calcium 7.8 mg/dL (8.5-10.1); Carbon Dioxide 24.5 meq/L (21.0-32.0); Chloride 117 meq/L (98-107); Creatine Kinase 1553 U/L (39-308); Glomerular Filtration Rate 63 mL/min (>89); Glucose,Random 72 mg/dL (74-106); Magnesium 2.2 mg/dL (1.5-2.5); Potassium 4.1 meq/L (3.5-5.1); Sodium 147 meq/L (136-145); Total Protein 6.5 g/dL (6.4-8.2); Vitamin B12 739 pg/mL (193-986)
[2018-08-14 06:02] LABS: CKMB Percent 0.7 % (0.0-4.0); Creatine Kinase MB 11.5 ng/mL (0.5-3.6)
--- NOTE | 2018-08-14 06:59 | ECG ---
Date Performed: 08/12/2018 Time Performed: 11:28:37 PTAGE: 68 years EKG: SINUS TACHYCARDIA INCOMPLETE RIGHT BUNDLE BRANCH BLOCK ABNORMAL RHYTHM ECG PREVIOUS TRACING : 09/08/2012 07.26 Since the previous tracing, no significant change noted DOCTOR: Ajith Nathan Interpretating Date/Time 08/14/2018 06:55:36
[2018-08-14] MEDS: Dexmedetomidine Inj 200 MCG in Sodium Chlor 0.9% Inj 48 ML IV.CONT PRN (07:53)
[2018-08-14] MEDS: Senna/Docusate Sodium 8.6/50 MG Tablet PO SCH (08:03)
[2018-08-14] MEDS: buPROPion 150 MG 12 HR Tablet PO SCH (08:03)
[2018-08-14] MEDS: amLODIPine 5 MG Tablet PO SCH (08:03)
[2018-08-14] MEDS: Folic Acid 1 MG Tablet PO SCH (08:03)
[2018-08-14] MEDS: Heparin - SQ 10,000 UNITS/ML Vial SQ SCH (08:04)
[2018-08-14 12:10] VITALS: TEMP 98.1
[2018-08-14] MEDS: chlordiazePOXIDE 25 MG Capsule PO SCH ×2 (13:24→17:19)
[2018-08-14] MEDS: Thiamine Inj 100 MG in Sodium Chlor 0.9% Inj 100 ML IV.SIG SCH (14:45)
[2018-08-14] MEDS: Multivitamin Inj 10 ML, Folic Acid Inj 1 MG in Sodium Chlor 0.9% Inj 500 ML IV.SIG SCH (14:45)
[2018-08-14] MEDS: LORazepam 1 MG Tablet PO PRN (16:48)
[2018-08-14 16:54] VITALS: BP 148/87
[2018-08-14 17:37] VITALS: PULSE 86; RESP 35; O2SAT 97
== END 2018-08-14 17:30 | disposition home or self-care (01) ==
LOC: NEPC 11:17 → NEDA 11:17 → NEPHCDU 15:11 → N03 08-13 13:55
PROVIDERS: ADMIT Surgery Surgical Critical Care; ATTEND Surgery Surgical Critical Care